=== PATIENT | male | born 1975 | race African-American/Black ===

== ENCOUNTER 2019-07-14 11:57 | Emergency (ER) | payer SELFPAY ==
[~2019-07-14] VITALS: Ht 172.7 cm; Wt 84.0 kg
[2019-07-14 13:47] VITALS: BP 145/80
== END 2019-07-14 13:48 | disposition home or self-care (01) ==
LOC: ER 11:57
DX: J06.9 Acute upper respiratory infection, unspecified (principal); R03.0 Elevated blood-pressure reading, without diagnosis of hypertension
CPT/HCPCS: 99281; 99283